=== PATIENT | female | born 1950 | race Caucasian/White ===

== ENCOUNTER 2016-08-07 11:27 | Observation (INO) | payer BC ==
[~2016-08-07] VITALS: Ht 165.1 cm; Wt 76.7 kg
[2016-08-07 12:02] LABS: HEMATOCRIT 43.8 % (36.0-46.0); MCH 29.2 PG (29.0-34.0); MCHC 33.8 G/DL (30.0-36.0); MCV 86.4 FL (83-99); PLATELET COUNT 290 K/uL (156-360); RBC DIS.WIDTH-CV 12.7 % (11.8-14.6); RBC DIS.WIDTH-SD 39.8 % (39-53); RED BLOOD COUNT 5.07 M/uL (3.80-5.20)
[2016-08-07 12:16] LABS: CHLORIDE 107 mEq/L (99-109); POTASSIUM 3.8 mEq/L (3.7-5.4); SODIUM 141 mEq/L (136-147)
[2016-08-07 12:18] LABS: GLUCOSE 111 mg/dL (70-99)
[2016-08-07 12:19] LABS: ANION GAP 11 MEQ/L (2-14)
[2016-08-07 12:22] LABS: GFR ESTIMATE (CALCULATED) > 59 mL/min/; UREA NITROGEN (BUN) 13 mg/dL (9-23)
[2016-08-07 13:00] LABS: ADD MIUA? YES; BILIRUBIN NEGATIVE; BLOOD NEGATIVE; GLUCOSE (STRIP) NEGATIVE; KETONES NEGATIVE; LEUKOCYTES TRACE; NITRITE NEGATIVE; PROTEIN (STRIP) NEGATIVE; SPECIFIC GRAVITY 1.008 (1.000-1.030); UROBILINOGEN 0.2 MG/DL (0.2-1.0)
[2016-08-07 13:03] LABS: COLOR LT YELLOW ((YELLOW))
[2016-08-07 13:21] LABS: AMORPHOUS PHOSPHATE CRYSTALS 2+; BACTERIA 2+ /HPF; CASTS NONE SEEN /LPF; CRYSTALS PRESENT; EPITHELIAL CELLS 1+ /HPF; MUCUS NONE SEEN /LPF; RED BLOOD CELLS NONE SEEN /HPF (0-5); UCUL ADDED? NO; WHITE BLOOD CELLS 0-5 /HPF (0-5)
[2016-08-07] MEDS ORDERED: AMLODIPINE BESY10 MG PO (14:25)
[2016-08-07] MEDS ORDERED: LOSARTAN POTASS50 MG PO (14:25)
[2016-08-07 16:25] VITALS: BP 127/75
[2016-08-07 20:00] VITALS: BP 90/51
[2016-08-07 23:52] VITALS: BP 115/66
[2016-08-08 03:51] VITALS: BP 108/61
[2016-08-08 07:13] LABS: HDL CHOLESTEROL 54 MG/DL (Desirable>=50); LDL CHOLESTEROL 155 mg/dL (Desirable<100); NON-HDL CHOLESTEROL 167 mg/dL (Desirable<160); TOTAL CHOLESTEROL 221 mg/dL (Desirable<200); TRIGLYCERIDES 62 MG/DL (Normal: <150)
[2016-08-08 08:13] LABS: Estimated Average Glucose 120 mg/dL (70-123); HEMOGLOBIN A1c (GLYCOHEMOGLOB) 5.8 % HGB (Below 5.7)
[2016-08-08 08:47] VITALS: BP 109/66
[2016-08-08] MEDS ORDERED: ASPIR-LOW81 MG PO (10:25)
[2016-08-08] MEDS ORDERED: ATORVASTATIN CA40 MG PO (10:25)
[2016-08-08] MEDS ORDERED: CIPRO500 MG PO (10:26)
== END 2016-08-08 11:56 | disposition home or self-care (01) ==
LOC: EME 11:27 → EDOF 15:16 → 5WEST 15:16 → EDOF 15:16 → 5WEST 15:54
PROVIDERS: Emergency Medicine; Hospitalist
DX: N39.0 Urinary tract infection, site not specified (principal); G45.4 Transient global amnesia; R41.0 Disorientation, unspecified; I10 Essential (primary) hypertension; E78.5 Hyperlipidemia, unspecified; F32.9 Major depressive disorder, single episode, unspecified
CPT/HCPCS: 70450; 71010; 80048; 80061; 81003; 83036; 85027; 87086; 93005; 93306; 93880; 99281; 99285; G0378; J0744